=== PATIENT | female | born 1990 | race Caucasian/White ===

== ENCOUNTER 2019-04-06 13:55 | Emergency (ER) | payer MEDICAID ==
[~2019-04-06] VITALS: Ht 175.3 cm; Wt 100.0 kg
[2019-04-06 13:57] VITALS: BP 138/71; PULSE 72; RESP 18; Ht 175.3 cm; Wt 100.0 kg
--- NOTE | 2019-04-06 14:45 | ERD ---
ER Documentation Chief Complaint Chief Complaint lubna removed fr head, in since 03/24 HPI Patient is here for staple removal from her scalp. She was unable to come prior to today. It has already been about 11 days since the injury. She has had no problems and is doing well. ROS All systems reviewed and are negative except as per history of present illness. Allergies Allergies: Coded Allergies: No Known Allergy (Verified , 02/26/11) PMhx/Soc Medical and Surgical Hx: pt denies Medical Hx, pt denies Surgical Hx Hx Alcohol Use: No Hx Substance Use: No Hx Tobacco Use: No Smoking Status: Never smoker Physical Exam Vitals Vital Signs Date Temp Pulse Resp B/P (MAP) Pulse Ox O2 O2 Flow FiO2 Time Delivery Rate 04/06/19 98.8 72 18 138/71 98 13:57 (93) Physical Exam Const: No acute distress Head: Atraumatic. Posterior scalp with lubna in place, wound well-healed, no evidence of infection Eyes: Normal Conjunctiva Neur: Awake and alert Psych: Normal Mood and Affect Procedures/MDM Staple Removal by me: Lubna removed with staple remover without incident. Wound shows no evidence of infection, foreign body. Patient to follow up PRN. Departure Diagnosis: Primary Impression: Encounter for removal of lubna Condition: Stable EKMEKANNIE SOLO MD Apr 06, 2019 14:45
== END 2019-04-06 16:55 | disposition home or self-care (01) ==
LOC: E/R 13:55
DX: Z48.02 Encounter for removal of sutures (principal)
CPT/HCPCS: 99281